=== PATIENT | female | born 1985 | race Caucasian/White ===

== ENCOUNTER 2016-12-16 19:13 | Outpatient (CLI) | payer OTHER | END 2016-12-16 23:18 | disposition home or self-care (01) | LOC: GENOP 19:13 | DX: O99.89 Other specified diseases and conditions complicating pregnancy, childbirth and the puerperium (principal); R10.9 Unspecified abdominal pain; O36.8130 Decreased fetal movements, third trimester, not applicable or unspecified; Z3A.30 30 weeks gestation of pregnancy | CPT/HCPCS: 59025; 81001; 96360; 96361; J7120 ==

== ENCOUNTER 2016-12-24 13:29 | Inpatient (IN) | payer OTHER ==
[~2016-12-24] VITALS: Ht 175.3 cm; Wt 72.6 kg
[2016-12-24 14:29] LABS: HEMOGLOBIN 12.7 gm/dl (12.3-15.3); RED BLOOD COUNT 4.2 M/UL (4.00-5.10); WHITE BLOOD COUNT 14.4 K/UL (4.5-11.0)
[2016-12-26 03:29] LABS: HEMOGLOBIN 10.7 gm/dl (12.3-15.3)
[2016-12-26] MEDS ORDERED: COLACE 100MG C100 MG PO (12:40)
== END 2016-12-26 12:56 | disposition home or self-care (01) | DRG 774 ==
LOC: GENOP 13:29 → OB 14:05
PROVIDERS: Obstetrics & Gynecology; ADMIT Obstetrics & Gynecology
PROC: 10907ZC Drainage of Amniotic Fluid, Therapeutic from Products of Conception, Via Natural or Artificial Opening (ICD-10-PCS; principal; 2016-12-25)
PROC: 10E0XZZ Delivery of Products of Conception, External Approach (ICD-10-PCS; principal; 2016-12-25)
PROC: 3E0234Z Introduction of Serum, Toxoid and Vaccine into Muscle, Percutaneous Approach (ICD-10-PCS; 2016-12-26)
DX: O60.14X0 Preterm labor third trimester with preterm delivery third trimester, not applicable or unspecified (principal); O98.82 Other maternal infectious and parasitic diseases complicating childbirth; Q87.418 Marfan syndrome with other cardiovascular manifestations; O99.834 Other infection carrier state complicating childbirth; O75.89 Other specified complications of labor and delivery; O99.334 Smoking (tobacco) complicating childbirth; Z3A.36 36 weeks gestation of pregnancy; Z37.0 Single live birth; F17.210 Nicotine dependence, cigarettes, uncomplicated; Z82.5 Family history of asthma and other chronic lower respiratory diseases; Z80.9 Family history of malignant neoplasm, unspecified; Z23 Encounter for immunization
CPT/HCPCS: 36415; 51702; 81001; 82800; 85014; 85018; 85025; 90707; 90715; C9113; J2590; J2765; J2795; J3010; J7120